=== PATIENT | male | born 1950 | race Caucasian/White ===

== ENCOUNTER → 2017-12-01 | Outpatient (CLI) | payer OTHER ==
[2017-12-01 13:40] LABS: ALBUMIN 4.3 g/dL (3.5-5.0); BUN/CREATININE RATIO 21.8 (6.0-26.0); CALCIUM 9.7 mg/dL (8.4-10.2); POTASSIUM 3.8 mmol/L (3.6-5.0); TOTAL BILIRUBIN 0.3 mg/dL (0.2-1.3); TOTAL PROTEIN 8.1 g/dL (6.3-8.2)
[2017-12-01 13:44] LABS: PARTIAL THROMBOPLASTIN TIME 22.3 SECONDS (21.0-32.0)
[2017-12-01 13:47] LABS: EOS # 0.2 (0.04-0.40); EOS % 2.5 % (0.0-4.0); HEMATOCRIT 42.3 % (42.0-52.0); HEMOGLOBIN 13.8 g/dL (13.5-18.0); LYMPH# 1.5 (1.50-4.00); MEAN CELL VOLUME 85 fl (78-100); MEAN CORPUSCULAR HEMOGLOBIN 28 pg (27-31); MEAN CORPUSCULAR HGB CONC 33 g/dL (33-37); MEAN PLATELET VOLUME 9.8 fl (7.4-10.4); MONO # 0.7 (0.20-0.80); NEU # 4.3 (1.40-6.50); PLATELET COUNT 313 K/mm3 (130-400); RED BLOOD COUNT 4.97 M/mm3 (4.20-5.60); WHITE BLOOD COUNT 6.7 K/mm3 (4.8-10.8)
== END ==
LOC: LAB 13:13
PROVIDERS: Family Medicine
DX: R07.9 Chest pain, unspecified (principal)

== ENCOUNTER → 2017-12-10 | Outpatient (CLI) | payer OTHER | LOC: CARDLAB 07:31 → CARDREHAB 07:31 → CARDLAB 10:04 | DX: R07.9 Chest pain, unspecified (principal) ==

== ENCOUNTER → 2020-09-20 | Outpatient (CLI) | payer MEDICARE, OTHER | LOC: VAS 16:18 | DX: R01.1 Cardiac murmur, unspecified (principal) ==